=== PATIENT | female | born 1975 | race Caucasian/White ===

== ENCOUNTER 2022-10-21 16:19 | Emergency (ER) | payer OTHER ==
[~2022-10-21] VITALS: Ht 162.6 cm; Wt 133.4 kg
[2022-10-21 16:42] VITALS: BP 101/62
--- NOTE | 2022-10-21 16:47 | NUR ---
pt ambulatory to dru w steady gait.
[2022-10-21] MEDS ORDERED: KETOROLAC 30 MG/ML VIAL IM ONE (17:05)
--- NOTE | 2022-10-21 17:48 | NUR ---
Pt bibs for R leg pain that radiates to butt x 1 week. Pt is ambulatory. Pain is 7/10, worse with movement, constant. Pt aware of need for urine sample. Pt is a/o x 4, vss, no ss of acute distress, breathing equal and unlabored, speech clear.
[2022-10-21] MEDS ORDERED: KETOROLAC 30 MG/ML VIAL ONE (18:58)
--- NOTE | 2022-10-21 19:20 | NUR ---
RECEIVED REPORT FROM PEMA DEAL RN
--- NOTE | 2022-10-21 19:20 | NUR ---
PT RESTING ON BED, A/OX4, NOT IN DISTRESS, ATTACHED TO MONITOR
--- NOTE | 2022-10-21 19:35 | NUR ---
URINE SPECIMEN SENT TO LAB
[2022-10-21 19:48] LABS: APPEARANCE,URINE CLEAR (CLEAR); BILIRUBIN,URINE NEGATIVE (NEGATIVE); BLOOD, URINE 2+ (NEGATIVE); COLOR,URINE YELLOW (YELLOW); LEUKOCYTE ESTERASE ,URINE TRACE (NEGATIVE); NITRITE, URINE NEGATIVE (NEGATIVE); UGLUCOSE NEGATIVE (NEGATIVE)
[2022-10-21 20:27] LABS: TRICHOMONAS,URINE None Seen /HPF (None Seen); YEAST,URINE None Seen /HPF (None Seen)
[2022-10-21] MEDS ORDERED: DIAZ10TA7 PO (21:01)
[2022-10-21] MEDS ORDERED: NAPR-1704 PO (21:01)
[2022-10-21] MEDS ORDERED: DIAZ2TAB6 PO (21:02)
[2022-10-21 21:13] VITALS: BP 101/62
--- NOTE | 2022-10-21 21:13 | NUR ---
Patient discharged with v/s stable. Written and verbal after care instructions given and explained. New rx naproxen and diazepam. Patient verbalized understanding. Ambulatory with steady gait. All questions addressed prior to discharge. Advised to follow up with PMD.
== END 2022-10-21 21:13 | disposition home or self-care (01) ==
LOC: MED 16:19
DX: M54.31 Sciatica, right side (principal); M47.817 Spondylosis without myelopathy or radiculopathy, lumbosacral region; Z79.899 Other long term (current) drug therapy
CPT/HCPCS: 73502; 81001; 81025; 96372; 99284; J1885